=== PATIENT | male | born 1970 | race Caucasian/White ===

== ENCOUNTER 2018-01-29 11:58 | Emergency (ER) | payer MEDICAID, OTHER ==
[2018-01-29] MEDS ORDERED: Sodium Chloride 0.9% 1,000 ML IV STA (12:32)
--- NOTE | 2018-01-29 12:44 | ED PDOC ---
Arrival/HPI - General Chief Complaint: Abdominal Pain Time Seen by Provider: 01/29/18 12:07 Historian: Patient - History of Present Illness Narrative History of Present Illness (Text): 01/29/18 12:37 47yo male with pmhx of NIDDM who present with 4days history of generalized malaise, nausea, vomiting with mild epigastric tenderness. Reports decreased appetite. Denies fever, chills, chest pain, SOB, diaphoresis, diarrhea, constipation, melena, hematemesis, sick contact, travel, any other complaint. States he did not take his medication today. Past Medical History - Provider Review Nursing Documentation Reviewed: Yes - Endocrine/Metabolic Hx Diabetes Mellitus Type 2: Yes - Psychiatric Hx Psychophysiologic Disorder: No Hx Substance Use: No Other/Comment: ETOH use - Anesthesia Hx Anesthesia: No Family/Social History - Physician Review Nursing Documentation Reviewed: Yes Family/Social History: Unknown Family HX Smoking Status: Never Smoked Hx Alcohol Use: Yes Frequency of alcohol use: Daily Hx Substance Use: No Allergies/Home Meds Allergies/Adverse Reactions: Allergies No Known Allergies Allergy (Verified 01/29/18 12:11) Home Medications: Home Meds Medication Instructions Recorded Confirmed metFORMIN [glucOPHAGE] 500 mg PO BID 01/29/18 01/29/18 Review of Systems - Physician Review All systems were reviewed & negative as marked: Yes - Review of Systems Constitutional: Fatigue Eyes: Normal ENT: Normal Respiratory: Normal Cardiovascular: Normal Gastrointestinal: Abdominal Pain, Nausea, Vomiting. absent: Constipation, Diarrhea, Hematochezia, Hematemesis Genitourinary Male: Normal Musculoskeletal: Normal Skin: Normal Neurological: Normal Endocrine: Normal Hemo/Lymphatic: Normal Psychiatric: Normal Physical Exam Vital Signs Reviewed: Yes Vital Signs Temp Pulse Resp BP Pulse Ox 01/29/18 14:40 98 F 85 19 129/54 L 99 01/29/18 12:08 99 F 86 18 134/84 97 Temperature: Afebrile Blood Pressure: Normal Pulse: Regular Respiratory Rate: Normal Appearance: Positive for: Well-Appearing, Non-Toxic, Comfortable Pain Distress: None Mental Status: Positive for: Alert and Oriented X 3 Finger Stick Blood Glucose: 210 - Systems Exam Head: Present: Atraumatic, Normocephalic Pupils: Present: PERRL Extroacular Muscles: Present: EOMI Conjunctiva: Present: Normal Mouth: Present: Moist Mucous Membranes Neck: Present: Normal Range of Motion Respiratory/Chest: Present: Clear to Auscultation, Good Air Exchange. No: Respiratory Distress, Accessory Muscle Use Cardiovascular: Present: Regular Rate and Rhythm, Normal S1, S2. No: Murmurs Abdomen: Present: Other (Soft). No: Tenderness, Distention, Peritoneal Signs, Rebound, Guarding, McBurney's Point Tender, Rovsing's Sign Present Back: Present: Normal Inspection Upper Extremity: Present: Normal Inspection. No: Cyanosis, Edema Lower Extremity: Present: Normal Inspection. No: Edema Neurological: Present: GCS=15, CN II-XII Intact, Speech Normal Skin: Present: Warm, Dry, Normal Color. No: Rashes Psychiatric: Present: Alert, Oriented x 3, Normal Insight, Normal Concentration Medical Decision Making ED Course and Treatment: 01/29/18 19:35 47yo male present with complaint of general malaise, nausea and vomiting x 3 days. He was hemodynamically stable. His PE was benign. Lab was ordered and reviewed and elevated LFT was noted. BS of 233 was noted. Pt admitted to history of alcohol. He have no sign of alcohol withdrawal in ED. His AG was 21. He did not take his antihypoglycemic and was advised to take his medication. EKG NSR with nonspecific T wave abnormality @ 68bpm He was hydrated in ED. Pt likely have viral syndrome. He was advised to drink plenty of fluid and rest. Zofran was given for N/V. Referred to his PMd/clinic TRT ED for any new or worsening symptoms. - Lab Interpretations Lab Results: 01/29/18 12:30 01/29/18 12:30 Lab Results 01/29/18 14:11: POC Glucose (mg/dL) 211 H 01/29/18 12:30: pO2 63 H, VBG pH 7.41, VBG pCO2 37.0 L, VBG HCO3 23.5, VBG Total CO2 24.6, VBG O2 Sat (Calc) 94.0 H, VBG Base Excess -0.8 L, VBG Potassium 2.7 L, Sodium 136.0, Chloride 100.0, Glucose 230 H, Lactate 3.7 H, FiO2 21.0, Venous Blood Potassium 2.7 L 01/29/18 12:30: Sodium 134, Chloride 89 L, Potassium 4.2, Carbon Dioxide 29, Anion Gap 21 H, BUN 14, Creatinine 0.5 L, Est GFR ( Amer) > 60, Est GFR ( Non-Af Amer) > 60, Random Glucose 233 H, Calcium 9.0, Total Bilirubin 3.5 H, AST 656 H, ALT 1440 H, Alkaline Phosphatase 143 H, Lactate Dehydrogenase 796 H, Total Creatine Kinase 52, Troponin I < 0.01, Total Protein 7.5, Albumin 4.3, Globulin 3.2, Albumin/Globulin Ratio 1.4, Amylase 49, Lipase 40 01/29/18 12:30: PT 12.5, INR 1.09, APTT 44.4 H 01/29/18 12:30: WBC 6.3, RBC 5.35, Hgb 17.4, Hct 47.0, MCV 87.9, MCH 32.5, MCHC 37.0, RDW 13.1, Plt Count 186, MPV 10.3, Gran % 62.8, Lymph % (Auto) 31.4, [place] % (Auto) 5.1, Eos % (Auto) 0.2 L, Baso % (Auto) 0.5, Gran # 3.93, Lymph # (Auto ) 2.0, [place] # (Auto) 0.3, Eos # (Auto) 0.0, Baso # (Auto) 0.03 01/29/18 12:14: POC Glucose (mg/dL) 210 H - Medication Orders Current Medication Orders: Discontinued Medications Famotidine (Pepcid) 20 mg IVP STAT STA Stop: 01/29/18 12:32 Last Admin: 01/29/18 12:45 Dose: 20 mg IVP Administration Document 01/29/18 12:45 [facility] (Rec: 01/29[facility]18 12:45 [email or web address] Charges for Administration # of IVP Administrations 1 Sodium Chloride (Sodium Chloride 0.9%) 1,000 mls @ 999 mls/hr IV .Q1H1M STA Stop: 01/29/18 13:32 Last Admin: 01/29/18 12:35 Dose: 999 mls/hr eMAR Start Stop Document 01/29/18 12:35 GMI (Rec: 01/29/18 12:36 [email or web address] Intravenous Solution Start Date 01/29/18 Start Time 12:35 End Date 01/29/18 End time 13:40 Total Infusion Time 65 Ondansetron HCl (Zofran Inj) 4 mg IVP STAT STA Stop: 01/29/18 12:32 Last Admin: 01/29/18 12:45 Dose: 4 mg IVP Administration Document 01/29/18 12:45 GMI (Rec: 01/29/18 12:45 [email or web address]) Charges for Administration # of IVP Administrations 1 Disposition/Present on Arrival - Present on Arrival Any Indicators Present on Arrival: No History of DVT/PE: No History of Uncontrolled Diabetes: No Urinary Catheter: No History of Decub. Ulcer: No History Surgical Site Infection Following: None - Disposition Have Diagnosis and Disposition been Completed?: Yes Diagnosis: Malaise, Vomiting, Abnormal LFTs Disposition: HOME/ ROUTINE Disposition Time: 14:15 Patient Plan: Discharge Condition: STABLE Discharge Instructions (ExitCare): Nausea and Vomiting, Adult (DC), Fatigue Additional Instructions: Follow up with your Doctor Return to ED for any new or worsening symptoms Prescriptions: Ondansetron ODT [Zofran ODT] 4 mg PO Q6 #6 odt Referrals: Bambi Grace MD [Medical Doctor] - Follow up with primary [facility] [Outside] - Follow up with primary [facility] [Outside] - Follow up with primary Forms: [employer] ([place])
[2018-01-29 12:47] LABS: BASO # 0.03 K/mm3 (0.0-2.0); BASO % 0.5 % (0.0-3.0); EOS % 0.2 % (1.5-5.0); GRAN # 3.93 (1.4-6.5); GRAN % 62.8 % (50.0-68.0); HEMOGLOBIN 17.4 g/dL (14.0-18.0); INR 1.09; LYMPH % 31.4 % (22.0-35.0); MEAN CELL VOLUME 87.9 fl (80.0-105.0); MEAN CORPUSCULAR HEMOGLOBIN 32.5 pg (25.0-35.0); MEAN PLATELET VOLUME 10.3 fl (7.0-11.0); MONO # 0.3 (0.1-0.6); MONO % 5.1 % (1.0-6.0); PARTIAL THROMBOPLASTIN TIME 44.4 Seconds (25.1-36.5); PROTHROMBIN TIME 12.5 SECONDS (9.4-12.5); RBC 5.35 10^6/uL (3.5-6.1); RED CELL DISTRIBUTION WIDTH 13.1 % (11.5-14.5); WHITE BLOOD COUNT 6.3 10^3/ul (4.5-11.0)
[2018-01-29 12:51] LABS: VENOUS BLOOD GAS BASE EXCESS -0.8 mmol/L (0.0-2.0); VENOUS BLOOD GAS PO2 63 mm/Hg (30-55); VENOUS BLOOD PH 7.41 (7.32-7.43)
[2018-01-29 13:07] LABS: ALB/GLOB RATIO 1.4 (1.1-1.8); ALBUMIN 4.3 g/dL (3.0-4.8); AMYLASE 49 U/L (35-125); AST/SGOT 656 U/L (17-59); BLOOD UREA NITROGEN 14 mg/dL (7-21); GFR NON-AFRICAN AMERICAN > 60; LIPASE 40 U/L (23-300)
[2018-01-29 13:18] LABS: TROPONIN I < 0.01 ng/mL
[2018-01-29 14:41] VITALS: BP 129/54; PULSE 85; RESP 19; TEMP 98; O2SAT 99
[2018-01-29 14:56] LABS: ALT/SGPT 1440 U/L (7-56)
--- NOTE | 2018-01-30 22:12 | CARD ---
APPROVED REPORT Date of service: 01/29/2018 EKG Measurement Heart [id number] <Conclusion> Normal sinus rhythm Nonspecific T wave abnormality Abnormal ECG
== END 2018-01-29 14:41 | disposition home or self-care (01) ==
LOC: ED 11:58
DX: R11.10 Vomiting, unspecified (principal); R79.89 Other specified abnormal findings of blood chemistry; R53.81 Other malaise; E11.9 Type 2 diabetes mellitus without complications
CPT/HCPCS: 80053; 82150; 82550; 82803; 82948; 83615; 83690; 84484; 85025; 85610; 85730; 87040; 93005; 96361; 96374; 96375; 99283; J2405; J7030